=== PATIENT | female | born 1990 | race Caucasian/White ===

== ENCOUNTER 2019-04-03 14:18 | Day surgery (SDC) | payer MEDICAID ==
[~2019-04-03] VITALS: Ht 167.6 cm; Wt 125.0 kg
[~2019-04-03 14:18] MED LIST: PREN1TAB28 PO
[2019-04-03 14:47] VITALS: BP 113/77
[2019-04-03] MEDS ORDERED: LACTATED RINGERS 1,000 ML IV SCH (14:50)
[2019-04-03] MEDS ORDERED: ACETAMINOPHEN 500 MG TABLET PO ONE (15:00)
[2019-04-03] MEDS ORDERED: PLEASE ENTER HEIGHT AND WEIGHT MC SCH (15:00)
[2019-04-03] MEDS ORDERED: SCOPOLAMINE PATCH, 1.5MG PATCH.TD72 TD ONE (15:00)
[2019-04-03] MEDS ORDERED: GABAPENTIN 300 MG CAPSULE PO ONE (15:00)
[2019-04-03] MEDS ORDERED: MIDAZOLAM 1 MG/ML, 2ML ONE (15:04)
[2019-04-03] MEDS ORDERED: FENTANYL PF 250 MCG/5ML ONE (15:04)
[2019-04-03] MEDS ORDERED: CEFAZOLIN 1,000 MG ONE (15:16)
[2019-04-03] MEDS ORDERED: PROPOFOL 10 MG/ML, 20ML ONE (15:16)
[2019-04-03] MEDS ORDERED: ONDANSETRON 2MG/ML, 2ML ONE (15:16)
[2019-04-03] MEDS ORDERED: DEXAMETHASONE 4 MG/ML, 1ML ONE (15:16)
[2019-04-03] MEDS ORDERED: LIDOCAINE 2% 100MG/5ML SYRINGE ONE (16:13)
[2019-04-03 16:48] LABS: HCG UR SG 1.029 (1.003-1.030)
[2019-04-03] MEDS ORDERED: LORazepam 2 MG/ML, 1ML IVPush PRN (17:00)
[2019-04-03] MEDS ORDERED: OXYcodone 5 MG/5 ML ORAL.SOL UDC PO PRN (17:00)
[2019-04-03] MEDS ORDERED: ONDANSETRON 2MG/ML, 2ML IV PRN (17:00)
[2019-04-03] MEDS ORDERED: PROMETHAZINE 25 MG/ML, 1ML IV PRN (17:00)
[2019-04-03] MEDS ORDERED: HYDROmorphone 2 MG/ML, 1ML IVPush PRN (17:00)
[2019-04-03] MEDS ORDERED: ONDANSETRON ODT 8 MG PO PRN (17:00)
[2019-04-03] MEDS ORDERED: OXYcodone 5 MG/5 ML ORAL.SOL UDC ONE (17:51)
[2019-04-03] MEDS ORDERED: FENTANYL PF 100 MCG/2ML ONE (17:51)
[2019-04-03] MEDS: FENTANYL PF 100 MCG/2ML IV PRN ×3 (17:55→18:07)
[2019-04-03] MEDS ORDERED: HYDROmorphone 2 MG/ML, 1ML ONE (18:19)
[2019-04-03 19:42] VITALS: BP 117/81
== END 2019-04-03 22:59 | disposition home or self-care (01) ==
LOC: OR 14:18 → 4NOR 18:49 → OR 22:59
PROVIDERS: ATTEND Orthopaedic Surgery
DX: S82.841A Displaced bimalleolar fracture of right lower leg, initial encounter for closed fracture (principal); Z79.891 Long term (current) use of opiate analgesic; Z79.899 Other long term (current) drug therapy; X50.1XXA Overexertion from prolonged static or awkward postures, initial encounter; W18.39XA Other fall on same level, initial encounter; Y93.89 Activity, other specified; Y92.89 Other specified places as the place of occurrence of the external cause; Y99.8 Other external cause status
CPT/HCPCS: 27814; 27829; 64445; 73610; 76000; 81025; C1713; J0690; J1100; J1170; J2250; J2405; J2704; J3010; J7120; G0378